=== PATIENT | female | born 1975 | race Caucasian/White ===

== ENCOUNTER 2019-02-28 22:00 | Emergency (ER) | payer SELFPAY ==
[~2019-02-28] VITALS: Ht 154.9 cm; Wt 106.6 kg
[2019-02-28 22:05] VITALS: BP 137/84
--- NOTE | 2019-02-28 22:05 | NUR ---
TO BED # 07 AMBULATORY
--- NOTE | 2019-02-28 22:07 | NUR ---
PT 43 Y/O FEMALE BIB FAMILY FOR C/O NON-PRODUCTIVE COUGH, FEVER, AND CHEST PAIN X 3 DAYS. PT STATES CHEST PAIN IS UNPROVOKED /. PT HAS C/O GENERALIZED BODY ACHES 9/10. PT TAKING THERAFLU WITH INEFFECTIVE RESULTS. RESPIRATIONS ARE EVEN AND UNLABORED. SKIN IS WARM AND DRY TO TOUCH. FAMILY AT BEDSIDE. PT ON MONTIOR. MED HX: NONE ALLERGIES: NONE
[2019-02-28] MEDS ORDERED: KETOROLAC 60 MG/2 ML VIAL IM ONE (23:05)
--- NOTE | 2019-02-28 23:15 | NUR ---
PT RESTING IN BED EYES OPEN AND LOOKING AT PHONE. PT RESPIRATIONS ARE EVEN AND UNLABORED. SKIN IS WARM AND DRY TO TOUCH. PT STATES HER PAIN HAS DECREASED FROM 10/10 TO 5/10. PT CURRENTLY DENIES NAUSEA OR FEELINGS OF DIZZYNESS. FAMILY AT BEDSIDE.
[2019-03-01 00:04] VITALS: BP 128/78
--- NOTE | 2019-03-01 00:05 | NUR ---
Patient discharged with v/s stable. Written and verbal after care instructions given and explained. Patient alert, oriented and verbalized understanding of instructions. Ambulatory with steady gait. All questions addressed prior to discharge. ID band removed. Patient advised to follow up with PMD. Rx of prednisone, zofran, motrin, norco given. Patient educated on indication of medication including possible reaction and side effects. Opportunity to ask questions provided and answered.
== END 2019-03-01 00:05 | disposition home or self-care (01) ==
LOC: MED 22:00
DX: R07.89 Other chest pain (principal); R11.2 Nausea with vomiting, unspecified; R05 Cough; R51 Headache; E11.9 Type 2 diabetes mellitus without complications; I10 Essential (primary) hypertension
CPT/HCPCS: 81002; 81025; 93005; 96372; 99283; J1885

== ENCOUNTER 2021-02-08 11:07 | Emergency (ER) | payer MEDICAID ==
[~2021-02-08] VITALS: Ht 157.5 cm; Wt 108.4 kg
[2021-02-08 11:15] VITALS: BP 142/94
--- NOTE | 2021-02-08 11:24 | NUR ---
TENT 2
--- NOTE | 2021-02-08 11:27 | NUR ---
BIB SELF C/O COUGH, FEVER,LEFT SHOULDER & MID BACK PAIN X 2 DAYS. ORAL TEMP 99.5, BLOOD SUGAR 282 AT THIS TIME. PMH: DM
[2021-02-08] MEDS ORDERED: IBUP-2218 PO (12:18)
[2021-02-08] MEDS ORDERED: PROM118S5 PO (12:18)
--- NOTE | 2021-02-08 12:20 | NUR ---
Chiara and ATA handed to CPT Tripp
--- NOTE | 2021-02-08 12:24 | NUR ---
Patient discharged with v/s stable. Written and verbal after care instructions given and explained. Patient alert, oriented and verbalized understanding of instructions. Ambulatory with steady gait. All questions addressed prior to discharge. ID band removed. Patient advised to follow up with PMD. Rx of Ibuprofen, Promethazine-Dm Syrup given. Patient educated on indication of medication including possible reaction and side effects. Opportunity to ask questions provided and answered.
== END 2021-02-08 12:24 | disposition home or self-care (01) ==
LOC: MED 11:07
DX: U07.1 COVID-19 (principal); E11.9 Type 2 diabetes mellitus without complications
CPT/HCPCS: 81002; 81025; 87426; 99283; U0003

== ENCOUNTER 2021-02-15 09:12 | Emergency (ER) | payer MEDICAID, SELFPAY ==
[~2021-02-15] VITALS: Ht 157.5 cm; Wt 104.3 kg
[~2021-02-15 09:12] MED LIST: IBUP-2218 PO; PROM118S5 PO
[2021-02-15 09:21] VITALS: BP 131/70
[2021-02-15] MEDS ORDERED: ACETAMINOPHEN EXTRA STRENGTH 500 MG TAB PO ONE (09:55)
[2021-02-15] MEDS ORDERED: FAMOTIDINE 20 MG TAB PO ONE (09:55)
[2021-02-15] MEDS ORDERED: ALUMINUM HYD/MAG/SIMETHICONE 30 ML UDC PO ONE (09:55)
--- NOTE | 2021-02-15 11:06 | NUR ---
45/F BIB DAUGHTER FOR 10/10 BACK PAIN AND COUGH. STATES SHE TESTED POSITIVE FOR COVID ONE WEEK AGO HERE AND REPORTS SHE WAS TOLD TO "RETURN TO RECEIVE ANTIBODIES." PATIENT ALSO STATES SHE HAS BEEN HAVING DYSURIA, DENIES SOB, CP.
[2021-02-15] MEDS ORDERED: AZIT250T4 PO (12:50)
[2021-02-15 12:59] VITALS: BP 131/70
--- NOTE | 2021-02-15 12:59 | NUR ---
Patient discharged with v/s stable. Written and verbal after care instructions COMMUNITY-ACQUIRED PNEUMONIA given and explained. Patient alert, oriented and verbalized understanding of instructions. Ambulatory with steady gait. All questions addressed prior to discharge. ID band removed. Patient advised to follow up with PMD. Rx of ZITHROMAX given. Patient educated on indication of medication including possible reaction and side effects. Opportunity to ask questions provided and answered.
== END 2021-02-15 12:59 | disposition home or self-care (01) ==
LOC: MED 09:12
DX: J18.9 Pneumonia, unspecified organism (principal)
CPT/HCPCS: 71045; 81002; 81025; 99284

== ENCOUNTER 2021-07-28 13:29 | Emergency (ER) | payer SELFPAY ==
[~2021-07-28] VITALS: Ht 154.9 cm; Wt 106.6 kg
[~2021-07-28 13:29] MED LIST changes: +AZIT250T4 PO
[2021-07-28 13:42] VITALS: BP 117/71
[2021-07-28] MEDS ORDERED: KETOROLAC 30 MG/ML VIAL IM ONE (14:00)
[2021-07-28] MEDS ORDERED: ONDANSETRON 4 MG ODT PO ONE (14:00)
[2021-07-28 14:33] LABS: BASOPHILS # (AUTO) 0.1 K/uL (0.00-0.22); BASOPHILS % (AUTO) 0.8 % (0.0-2.0); EOSINOPHILS # (AUTO) 0.2 K/uL (0-0.4); EOSINOPHILS % (AUTO) 1.3 % (0.0-4.0); HEMATOCRIT 27.4 % (36-48); HEMOGLOBIN 8.2 g/dL (12.0-16.0); LYMPHOCYTES # (AUTO) 2.3 K/uL (2.5-16.5); LYMPHOCYTES % (AUTO) 18.1 % (20.5-51.1); MEAN CORPUSCULAR HEMOGLOBIN 19 pg (27-31); MEAN CORPUSCULAR HGB CONC 30 g/dL (33-37); MEAN CORPUSCULAR VOLUME 64.1 fL (80-94); MONOCYTES # (AUTO) 0.7 K/uL (0.8-1.0); MONOCYTES % (AUTO) 5.2 % (1.7-9.3); NEUTROPHILS # (AUTO) 9.6 K/uL (1.8-7.7); NEUTROPHILS % (AUTO) 74.6 % (42.2-75.2); PLATELET COUNT (AUTO) 341 K/uL (140-450); RED BLOOD CELL COUNT(AUTO) 4.27 MIL/uL (4.20-5.40); RED CELL DISTRIBUTION WIDTH 19.3 % (11.6-13.7); WHITE BLOOD COUNT (AUTO) 12.9 K/uL (4.8-10.8)
[2021-07-28 14:42] LABS: ALBUMIN 3.1 g/dL (3.4-5.0); ANION GAP 10.3 (8-16); CARBON DIOXIDE 27.6 mmol/L (21-32); CREATININE 0.6 mg/dL (0.6-1.3); POTASSIUM 3.9 mmol/L (3.5-5.1); TOTAL BILIRUBIN 0.4 mg/dL (0.0-1.0)
[2021-07-28] MEDS ORDERED: ONDA-188 PO (15:25)
[2021-07-28] MEDS ORDERED: cefTRIAXone 1,000 MG in LIDOCAINE MPF 1% 2.1 ML IM ONE (15:25)
[2021-07-28] MEDS ORDERED: NAPR-54 PO (15:25)
[2021-07-28] MEDS ORDERED: CEPH-588 PO (15:25)
[2021-07-28] MEDS ORDERED: LIDOCAINE MPF 1% 5 ML ONE (15:31)
[2021-07-28] MEDS ORDERED: cefTRIAXone 1,000 MG VIAL ONE (15:31)
[2021-07-28 15:45] VITALS: BP 117/71
== END 2021-07-28 15:45 | disposition home or self-care (01) ==
LOC: MED 13:29
DX: N39.0 Urinary tract infection, site not specified (principal); E11.9 Type 2 diabetes mellitus without complications; Z79.899 Other long term (current) drug therapy
CPT/HCPCS: 36415; 80053; 81002; 81025; 83690; 85025; 96372; 99284; J0696; J1885; J2001; Q0162

== ENCOUNTER 2022-03-09 09:13 | Emergency (ER) | payer SELFPAY ==
[~2022-03-09] VITALS: Ht 157.5 cm; Wt 104.3 kg
[~2022-03-09 09:13] MED LIST changes: +CEPH-588 PO; +NAPR-54 PO; +ONDA-188 PO
[2022-03-09 09:16] VITALS: BP 132/83
--- NOTE | 2022-03-09 09:26 | NUR ---
pt wheelchair assisted to bed 02
[2022-03-09] MEDS ORDERED: NACL 0.9% 1,000 ML IV ONE (09:40)
[2022-03-09 10:07] LABS: BASOPHILS # (AUTO) 0.1 K/uL (0.00-0.22); BASOPHILS % (AUTO) 1.5 % (0.0-2.0); EOSINOPHILS # (AUTO) 0.2 K/uL (0-0.4); EOSINOPHILS % (AUTO) 3.4 % (0.0-4.0); HEMATOCRIT 23.8 % (36-48); LYMPHOCYTES # (AUTO) 2.2 K/uL (2.5-16.5); LYMPHOCYTES % (AUTO) 36.3 % (20.5-51.1); MEAN CORPUSCULAR HEMOGLOBIN 17 pg (27-31); MEAN CORPUSCULAR HGB CONC 29 g/dL (33-37); MEAN CORPUSCULAR VOLUME 58.6 fL (80-94); MONOCYTES # (AUTO) 0.3 K/uL (0.8-1.0); MONOCYTES % (AUTO) 4.4 % (1.7-9.3); NEUTROPHILS # (AUTO) 3.3 K/uL (1.8-7.7); NEUTROPHILS % (AUTO) 54.4 % (42.2-75.2); PLATELET COUNT (AUTO) 397 K/uL (140-450); RED BLOOD CELL COUNT(AUTO) 4.07 MIL/uL (4.20-5.40); RED CELL DISTRIBUTION WIDTH 19.5 % (11.6-13.7); WHITE BLOOD COUNT (AUTO) 6.1 K/uL (4.8-10.8)
[2022-03-09 10:30] LABS: ALBUMIN 3.7 g/dL (3.4-5.0); ANION GAP 11.7 (8-16); ASPARTATE AMINOTRANSFERASE 11 U/L (15-37); CARBON DIOXIDE 27.2 mmol/L (21-32); CHLORIDE 103 mmol/L (98-107); CREATININE 0.5 mg/dL (0.6-1.3); GFR ARICAN-AMERICAN 172 mL/min (>90); GLUCOSE 236 mg/dL (74-106); POTASSIUM 3.9 mmol/L (3.5-5.1); SODIUM SERUM 138 mmol/L (136-145); TOTAL BILIRUBIN 0.8 mg/dL (0.0-1.0); UREA NITROGEN, BLOOD 10 mg/dL (7-18)
--- NOTE | 2022-03-09 10:50 | NUR ---
EDP AT BEDSIDE EXPLAINNING TO PATIENT HER STATUS.
[2022-03-09] MEDS ORDERED: FERR-20 PO (11:59)
--- NOTE | 2022-03-09 12:07 | NUR ---
BLOOD CONSENT OBTAINNED, AWAITING FOR BLOOD.
--- NOTE | 2022-03-09 13:00 | NUR ---
BLOOD TRANSFUSION STARTED AWAITING FOR 15 MINUTES AT BEDSIDE FOR CONTINEOUS ASSESSMENT PER PROTOCOLE.
[2022-03-09 13:15] VITALS: BP 122/61
--- NOTE | 2022-03-09 13:15 | NUR ---
BLOOD TRANSFUSION IN PROGRESS NO SIGN OF ANY ADVERSE REACTION, WILL CONTINUE TO MONITOR.
--- NOTE | 2022-03-09 15:42 | NUR ---
TRANSFUSION COMPLETED, PATIENT TOLERATED WELL AND D/C HOME WITH INSTRUCTION.
--- NOTE | 2022-03-09 15:46 | NUR ---
Patient discharged with v/s stable. Written and verbal after care instructions given and explained. Patient alert, oriented and verbalized understanding of instructions. Ambulatory with steady gait. All questions addressed prior to discharge. ID band removed. Patient advised to follow up with PMD. Rx of FERROUS given. Patient educated on indication of medication including possible reaction and side effects. Opportunity to ask questions provided and answered.
--- NOTE | 2022-03-12 10:05 | NUR ---
LATE ENTRY - CONFIRMED WITH NURSE NS INFUSION COMPLETED AT 1117 03/09/22.
== END 2022-03-09 15:46 | disposition home or self-care (01) ==
LOC: MED 09:13
DX: D50.9 Iron deficiency anemia, unspecified (principal); D21.9 Benign neoplasm of connective and other soft tissue, unspecified; E11.9 Type 2 diabetes mellitus without complications; Z79.4 Long term (current) use of insulin; Z79.899 Other long term (current) drug therapy
CPT/HCPCS: 36415; 36430; 76856; 80053; 84484; 85025; 86886; 86900; 86901; 86920; 93005; 93976; 96360; 99285; J7030; P9016; Q0092

== ENCOUNTER 2022-04-02 09:02 | Emergency (ER) | payer MEDICAID ==
[~2022-04-02] VITALS: Ht 154.9 cm; Wt 106.6 kg
[~2022-04-02 09:02] MED LIST changes: +FERR-20 PO
[2022-04-02 09:20] VITALS: BP 142/74
[2022-04-02 09:57] LABS: BASOPHILS # (AUTO) 0.1 K/uL (0.00-0.22); EOSINOPHILS # (AUTO) 0.2 K/uL (0-0.4); EOSINOPHILS % (AUTO) 3.5 % (0.0-4.0); HEMATOCRIT 28.8 % (36-48); HEMOGLOBIN 8.6 g/dL (12.0-16.0); LYMPHOCYTES # (AUTO) 2.1 K/uL (2.5-16.5); LYMPHOCYTES % (AUTO) 33.7 % (20.5-51.1); MEAN CORPUSCULAR HEMOGLOBIN 20 pg (27-31); MEAN CORPUSCULAR HGB CONC 30 g/dL (33-37); MEAN CORPUSCULAR VOLUME 66.4 fL (80-94); MONOCYTES # (AUTO) 0.3 K/uL (0.8-1.0); MONOCYTES % (AUTO) 5.2 % (1.7-9.3); NEUTROPHILS # (AUTO) 3.5 K/uL (1.8-7.7); NEUTROPHILS % (AUTO) 56.6 % (42.2-75.2); PLATELET COUNT (AUTO) 343 K/uL (140-450); RED BLOOD CELL COUNT(AUTO) 4.33 MIL/uL (4.20-5.40); RED CELL DISTRIBUTION WIDTH 28.4 % (11.6-13.7); WHITE BLOOD COUNT (AUTO) 6.2 K/uL (4.8-10.8)
--- NOTE | 2022-04-02 10:11 | NUR ---
Pt bibs for dizzyness x 2 days. Pt states she has had anemia before and needed blood. Pt has no neuro deficits. Pt a/o x 4, vss, no ss of acute distress, breathing equal and unlabored, speech clear. has seen pt. Labs drawn and handed to lab. Pt on monitor.
[2022-04-02 10:23] LABS: ALBUMIN 3.6 g/dL (3.4-5.0); ANION GAP 9.4 (8-16); CARBON DIOXIDE 29.1 mmol/L (21-32); CREATININE 0.6 mg/dL (0.6-1.3); POTASSIUM 4.5 mmol/L (3.5-5.1); TOTAL BILIRUBIN 0.7 mg/dL (0.0-1.0)
[2022-04-02 11:08] LABS: APPEARANCE,URINE CLEAR (CLEAR); BILIRUBIN,URINE NEGATIVE (NEGATIVE); BLOOD, URINE LARGE (NEGATIVE); COLOR,URINE YELLOW (YELLOW); LEUKOCYTE ESTERASE ,URINE NEGATIVE (NEGATIVE); NITRITE, URINE NEGATIVE (NEGATIVE); PH,URINE 5.5 (5.0-9.0); UGLUCOSE NEGATIVE (NEGATIVE)
[2022-04-02 11:19] LABS: RBC,URINE >100 /HPF (0-5); WBC,URINE 0-5 /HPF (0-5)
[2022-04-02] MEDS ORDERED: MEDR10TA PO (11:27)
[2022-04-02 12:38] VITALS: BP 141/65
--- NOTE | 2022-04-02 13:15 | NUR ---
spoke with pt and then gave order for dc. Pt in stable condition. Pt a/o x 4, vss, no ss of acute distress, breathing equal and unlabored. ACI given and reviewed with pt, pt verbalized understanding and will follow up with primary. Pt assisted to wc and then to lobby, for pick by son. IV removed and inspected for patency.
== END 2022-04-02 12:39 | disposition home or self-care (01) ==
LOC: MED 09:02
DX: D21.9 Benign neoplasm of connective and other soft tissue, unspecified (principal); N93.8 Other specified abnormal uterine and vaginal bleeding; D64.9 Anemia, unspecified; E11.9 Type 2 diabetes mellitus without complications; Z79.899 Other long term (current) drug therapy
CPT/HCPCS: 36415; 80053; 81001; 81025; 82948; 85025; 86886; 86900; 86901; 99283